=== PATIENT | male | born 1990 ===

== ENCOUNTER 2017-04-03 00:02 | Emergency (ER) | payer OTHER ==
[2017-04-03 00:26] VITALS: BP 145/62; PULSE 62; RESP 14; TEMP 98; O2SAT 98
--- NOTE | 2017-04-03 00:49 | ED PDOC ---
Lower Extremity Pain/Injury Time Seen by Provider: 04/03/17 00:48 Chief Complaint (Nursing): Lower Extremity Problem/Injury Chief Complaint (Provider): LEFT LEG INJURY History Per: Patient (26 Y/O MALE HERE FOR EVALUATION OF LEFT LEG INJURY THAT OCCURRED WITH REFRIDGERATOR WAS DROPPED ON LEFT LEG 2 DAYS AGO. NOTES SWELLING AND PAIN PERSISTENT.) Past Medical History Reviewed: Historical Data, Nursing Documentation, Vital Signs Vital Signs: Last Vital Signs Temp 98 F 04/03/17 00:22 Pulse 62 04/03/17 00:22 Resp 14 04/03/17 00:22 BP 145/62 04/03/17 00:22 Pulse Ox 98 04/03/17 00:22 - Family History Family History: States: No Known Family Hx - Home Medications Home Medications: Ambulatory Orders Medication Instructions Recorded Ibuprofen [Motrin] 600 mg PO Q8 PRN #21 tab 04/03/17 - Allergies Allergies/Adverse Reactions: Allergies Allergy/AdvReac Type Severity Reaction Status Date / Time No Known Allergies Allergy Verified 04/03/17 00:22 Review of Systems ROS Statement: Except As Marked, All Systems Reviewed And Found Negative Physical Exam - Reviewed Nursing Documentation Reviewed: Yes Vital Signs Reviewed: Yes - Physical Exam Appears: Positive for: Well, Non-toxic, No Acute Distress Head Exam: Positive for: ATRAUMATIC, NORMAL INSPECTION, NORMOCEPHALIC Skin: Positive for: Normal Color, Warm, DRY Eye Exam: Positive for: EOMI, Normal appearance, PERRL ENT: Positive for: Normal ENT Inspection Neck: Positive for: Normal, Painless ROM Cardiovascular/Chest: Positive for: Regular Rate, Rhythm Respiratory: Positive for: CNT, Normal Breath Sounds Gastrointestinal/Abdominal: Positive for: Normal Exam, Bowel Sounds, Soft Back: Positive for: Normal Inspection Extremity: Positive for: Normal ROM, Tenderness, Swelling, Other (ECCHYMOSIS LEFT LATERAL LEG AND FOOT) Neurologic/Psych: Positive for: Alert, Oriented - ECG O2 Sat by Pulse Oximetry: 98 - Progress ED Course And Treament: MOTRIN 600MG XRY TIB-FIB: NEG FOR FX XRY ANKLE: NEG FOR FX XRY FOOT: NEG FOR FX PLACED IN AIR CAST AND GIVEN CRUTCH INSTRUCTIONS. Disposition - Clinical Impression Clinical Impression: Ankle sprain - Patient ED Disposition Is Patient to be Admitted: No - Disposition Referrals: Podiatry Clinic [Outside] Disposition: Routine/Home Disposition Time: : Condition: FAIR Prescriptions: Ibuprofen [Motrin] 600 mg PO Q8 PRN #21 tab PRN Reason: Pain, Moderate (4-7) Instructions: Ankle Sprain (ED), Ankle Stirrup Splint (ED) Forms: [facility] [employer] [employer] [facility] ([place]), [facility] ED School/Work Excuse
--- NOTE | 2017-04-03 09:25 | RAD ---
PROCEDURE: Radiographs of the left tibia and fibula. HISTORY: leg injury COMPARISON: None available. TECHNIQUE: Frontal and lateral views obtained of the upper/mid tibia and fibula. FINDINGS: BONES: No fracture or destructive lesion. JOINT SPACES: Unremarkable. OTHER FINDINGS: None. IMPRESSION: Unremarkable radiographs of the left upper/mid tibia and fibula. The distal portion was not radiographed.
--- NOTE | 2017-04-03 09:26 | RAD ---
PROCEDURE: Left Ankle Radiographs. HISTORY: ankle pain COMPARISON: None FINDINGS: BONES: No acute fracture. JOINTS: Ankle mortise maintained. Talar dome intact SOFT TISSUES: Normal. OTHER FINDINGS: None. IMPRESSION: No demonstrated fracture or dislocation.
--- NOTE | 2017-04-03 09:26 | RAD ---
PROCEDURE: Left Foot Radiographs. HISTORY: injury COMPARISON: None. FINDINGS: BONES: No acute fracture. JOINTS: Unremarkable. SOFT TISSUES: Normal. OTHER FINDINGS: None. IMPRESSION: No demonstrated fracture or dislocation.
== END 2017-04-03 01:42 | disposition home or self-care (01) ==
LOC: H.ER 00:02
DX: S93.402A Sprain of unspecified ligament of left ankle, initial encounter (principal); W20.8XXA Other cause of strike by thrown, projected or falling object, initial encounter